=== PATIENT | male | born 1975 | race Hispanic/Latino ===

== ENCOUNTER 2018-02-13 16:44 | Emergency (ER) | payer MEDICAID, OTHER ==
[2018-02-13] MEDS ORDERED: Sodium Chloride 0.9% 1,000 ML IV STA (16:50)
--- NOTE | 2018-02-13 16:58 | ED PDOC ---
Arrival/HPI - General Time Seen by Provider: 02/13/18 16:47 Historian: Patient, EMS - History of Present Illness Narrative History of Present Illness (Text): 02/13/18 16:52 42 year old male, with past medical history of anxiety/bipolar presents to the Emergency department via EMS for reported AMS s/p reported cardiac arrest prior to arrival. As per EMS, patient became unresponsive at home and CPR was reportedly initiated by family members and 911 was called immediately. CPR was continued upon arrival of fire department and subsequently by BLS arrival, pt was awake. Patient was also found to have pinpoint pupils on the scene and was administered narcan. Upon arrival to the Emergency department, patient was awake , alert and oriented. Patient states he was working all day today possibly leading up to the event. Patient denies any drug use. HPI and ROS limited secondary to poor history provided. 02/13/18 17:32 Time/Duration: Prior to Arrival Symptom Onset: Gradual Symptom Course: Improving Activities at Onset: Light Context: Home Past Medical History - Provider Review Nursing Documentation Reviewed: Yes - Psychiatric Hx Anxiety: Yes Hx Substance Use: No (denied) Family/Social History - Physician Review Nursing Documentation Reviewed: Yes Family/Social History: No Known Family HX Smoking Status: Unknown If Ever Smoked Hx Alcohol Use: No Hx Substance Use: No (denied) Allergies/Home Meds Allergies/Adverse Reactions: Allergies No Known Allergies Allergy (Verified 02/13/18 16:52) Home Medications: Home Meds Medication Instructions Recorded Confirmed clonazePAM [Klonopin] 1 tab PO DAILY 02/13/18 02/13/18 Review of Systems - Review of Systems Systems not reviewed;Unavailable: Acuity of Condition (poor historian) Cardiovascular: Other (cardiac arrest) Physical Exam Vital Signs Reviewed: Yes Vital Signs Temp Pulse Resp BP Pulse Ox 02/13/18 16:44 98.7 F 75 20 121/75 99 Temperature: Afebrile Appearance: Positive for: Well-Appearing, Non-Toxic, Comfortable Pain Distress: None Mental Status: Positive for: Alert and Oriented X 3 - Systems Exam Head: Present: Atraumatic, Normocephalic Pupils: Present: PERRL Extroacular Muscles: Present: EOMI Conjunctiva: Present: Normal Mouth: Present: Moist Mucous Membranes Neck: Present: Normal Range of Motion Respiratory/Chest: Present: Clear to Auscultation, Good Air Exchange. No: Respiratory Distress, Accessory Muscle Use Cardiovascular: Present: Regular Rate and Rhythm, Normal S1, S2. No: Murmurs Abdomen: No: Tenderness, Distention, Peritoneal Signs Back: Present: Normal Inspection Upper Extremity: Present: Normal Inspection. No: Cyanosis, Edema Lower Extremity: Present: Normal Inspection. No: Edema Neurological: Present: GCS=15, CN II-XII Intact, Speech Normal Skin: Present: Warm, Dry, Normal Color. No: Rashes Psychiatric: Present: Alert, Oriented x 3, Normal Insight, Normal Concentration Medical Decision Making ED Course and Treatment: 02/13/18 17:00 Impression: 42 year old male presents to the Emergency department s/p cardiac arrest. Differential Diagnosis included but are not limited to: overdose vs cardiac, metabolic vs tox vsintracranil Plan: -- VBG -- CT of Head -- Labs -- Chest X-ray -- IV Fluids -- Urinalysis -- Reassess and disposition Prior Visits: Notes and results from previous visits were reviewed. Progress Notes: 02/13/18 17:15 Patient informs improved symptoms and expresses no further medical intervention. Patient expresses to go home despite awareness of the consequences personally mentioned. The patient is choosing to leave against medical advice. I have personally explained to the patient that choosing to do so may result in permanent bodily harm or . I have discussed at great length that without further evaluation and monitoring there may be unforeseen circumstances and/or deterioration causing permanent bodily harm or as a result of their choice. The patient is alert, oriented, and shows the mental capacity to make clear decisions regarding the patients health care at this time. The patient continues to wish to leave against medical advice. In light of the patients decision to leave against medical advice, follow-up has been arranged and the patient is aware of the importance to following up as instructed. The patient has been advised that they should return to the emergency room immediately if they change their mind at any time, or if their condition begins to change or worsen in any way. 02/13/18 17:[address] twave changes qtc 493 02/13/18 17:21 upon initial arrival, pt oriented x3, states "wishes to wait in er till he feels better" then leave, denies any complaints. i asked pt for contact info of family for further info. he refuses. i suggested pt obtain lab work, imaging, ekg. shortly after, family arrives, endorse pt was at baseline previous to reported arrest. they state pt is now at baseline. pt continues to deny any complaint or drug use upon family arrival, pt pulls out iv, requests immediate discharge. pt has been oriented x 3 in er, responds to all questions appropriately. i spoke at length with family and pt, about decision to make AMA. pt is not altered, oriented x 3, signs AMA. pt is oriented x 3, denies si hi, hallucinations. i have again repeated conversation with family bedside, who endorse pt is not disoriented. he is seen ambulating out of ER accompanied by family. i additionally encourged him to wait in er for lab results. he refuses. states "i feel great". my suspicion is high for narcotic/opiate overdose, although pt declines use i advised him of high risk of resp depression. he verbailizes full understanding. - Lab Interpretations Lab Results: 02/13/18 17:06 Lab Results 02/13/18 17:06: PT 11.3, INR 0.99, APTT 29.7 02/13/18 17:06: WBC 8.8, RBC 5.09, Hgb 14.6, Hct 43.5, MCV 85.5, MCH 28.7, MCHC 33.6, RDW 14.3, Plt Count 241, MPV 9.7, Gran % 44.7 L, Lymph % (Auto) 44.5 H, [place] % (Auto) 8.2 H, Eos % (Auto) 2.3, Baso % (Auto) 0.3, Gran # 3.95, Lymph # ( Auto) 3.9 H, [place] # (Auto) 0.7 H, Eos # (Auto) 0.2, Baso # (Auto) 0.03 02/13/18 17:06: pO2 36, VBG pH 7.21 L, VBG pCO2 71.0 H*, VBG HCO3 28.4 H, VBG Total CO2 30.6 H, VBG O2 Sat (Calc) 67.2 H, VBG Base Excess -1.3 L, VBG Potassium 4.2, Sodium 138.0, Chloride 100.0, Glucose 197 H, Lactate 2.8 H, FiO2 21.0, Venous Blood Potassium 4.2 - RAD Interpretation Radiology Orders: 02/13/18 16:49 HEAD W/O CONTRAST [CT] Stat - Medication Orders Current Medication Orders: Discontinued Medications Sodium Chloride (Sodium Chloride 0.9%) 1,000 mls @ 999 mls/hr IV .[id number] STA Stop: 02/13/18 17:50 - Scribe Statement The provider has reviewed the documentation as recorded by the Scribe Michelle Martinez. All medical record entries made by the Scribe were at my direction and personally dictated by me. I have reviewed the chart and agree that the record accurately reflects my personal performance of the history, physical exam, medical decision making, and the department course for this patient. I have also personally directed, reviewed, and agree with the discharge instructions and disposition. Disposition/Present on Arrival - Present on Arrival Any Indicators Present on Arrival: No - Disposition Have Diagnosis and Disposition been Completed?: Yes Diagnosis: Left against medical advice, Cardiac arrest, Overdose Disposition: AGAINST MEDICAL ADVICE Disposition Time: 05:00 Condition: UNKNOWN Discharge Instructions (ExitCare): Sudden Cardiac Arrest, Narcotic Overdose , Leaving Against Medical Advice Additional Instructions: you are leaving against medical advice. you are high risk for . you are able to return to any er with any worsening s ymptoms or concerns. Referrals: [facility] [Outside] - Follow up with primary [facility] [place] [Outside] - Follow up with primary Forms: [employer] (Croatian)
[2018-02-13 17:18] LABS: VENOUS BLOOD GAS BASE EXCESS -1.3 mmol/L (0.0-2.0); VENOUS BLOOD GAS PO2 36 mm/Hg (30-55); VENOUS BLOOD PH 7.21 (7.32-7.43)
[2018-02-13 17:28] LABS: BASO # 0.03 K/mm3 (0.0-2.0); BASO % 0.3 % (0.0-3.0); EOS # 0.2 (0.0-0.7); EOS % 2.3 % (1.5-5.0); GRAN # 3.95 (1.4-6.5); GRAN % 44.7 % (50.0-68.0); HEMOGLOBIN 14.6 g/dL (14.0-18.0); LYMPH # 3.9 (1.2-3.4); LYMPH % 44.5 % (22.0-35.0); MEAN CELL VOLUME 85.5 fl (80.0-105.0); MEAN CORPUSCULAR HEMOGLOBIN 28.7 pg (25.0-35.0); MEAN CORPUSCULAR HGB CONC 33.6 g/dl (31.0-37.0); MEAN PLATELET VOLUME 9.7 fl (7.0-11.0); MONO # 0.7 (0.1-0.6); MONO % 8.2 % (1.0-6.0); RBC 5.09 10^6/uL (3.5-6.1); RED CELL DISTRIBUTION WIDTH 14.3 % (11.5-14.5); WHITE BLOOD COUNT 8.8 10^3/ul (4.5-11.0)
[2018-02-13 17:29] LABS: INR 0.99; PARTIAL THROMBOPLASTIN TIME 29.7 Seconds (25.1-36.5); PROTHROMBIN TIME 11.3 SECONDS (9.4-12.5)
[2018-02-13 17:53] VITALS: BP 121/75; PULSE 75; RESP 20; TEMP 98.7; O2SAT 99
--- NOTE | 2018-02-14 12:57 | CARD ---
APPROVED REPORT Date of service: 02/13/2018 EKG Measurement Heart [id number] [id number] <Conclusion> Normal sinus rhythm Prolonged QT Abnormal ECG
== END 2018-02-13 17:15 | disposition left against medical advice (07) ==
LOC: ED 16:44
DX: I46.9 Cardiac arrest, cause unspecified (principal); T50.991A Poisoning by other drugs, medicaments and biological substances, accidental (unintentional), initial encounter; Y92.89 Other specified places as the place of occurrence of the external cause